=== PATIENT | female | born 1950 | race Caucasian/White ===

== ENCOUNTER 2020-08-01 13:12 | Emergency (ER) | payer MEDICARE, OTHER ==
--- NOTE | 2020-08-01 13:39 | ED Physician Documentation ---
PD HPI CHEST PAIN - Stated complaint Stated Complaint: CHEST PX - Chief complaint Chief Complaint: Cardiac - History obtained from History obtained from: Patient - History of Present Illness Timing - onset: Today - Additional information Additional information: This is a very healthy 70-year-old woman without history of heart disease who was in her usual state of health at 11 AM driving and coughed and then got a sudden sharp central nonradiating chest pain which defervesced and became dull and is now gone. She went to an urgent care but was referred here for further evaluation and treatment. There is no associated radiation to the back, pedal edema, calf pain, shortness of breath. Review of Systems Ten Systems: 10 systems reviewed and negative Nose: denies: Rhinorrhea / runny nose, Congestion Throat: denies: Sore throat Cardiac: denies: Pedal edema, Calf pain Respiratory: denies: Dyspnea, Cough, Hemoptysis, Wheezing PD PAST MEDICAL HISTORY - Past Medical History Cardiovascular: None Respiratory: Other Endocrine/Autoimmune: None GI: None : None HEENT: None Psych: None Musculoskeletal: None Derm: None - Past Surgical History Ortho: Carpal Tunnel surgery - Present Medications Home Medications: Ambulatory Orders Medication Instructions Recorded Confirmed Alendronate Sodium [Fosamax] 70 mg PO DAILY 10/13/13 08/01/20 Gabapentin [Gralise] 300 mg PO TID 08/01/20 08/01/20 Ibuprofen 400 mg PO DAILY 08/01/20 08/01/20 Mometasone Furoate [Nasonex] 1 spray .ROUTE DAILY 08/01/20 08/01/20 - Allergies Allergies/Adverse Reactions: Allergies Allergy/AdvReac Type Severity Reaction Status Date / Time sulfamethoxazole AdvReac Intermediate Nausea Verified 08/01/20 13:27 [From ] trimethoprim [From ] AdvReac Intermediate Nausea Verified 08/01/20 13:27 PD ED PE NORMAL - Vitals Vital signs reviewed: Yes - General General: Alert and oriented X 3, No acute distress - HEENT HEENT: PERRL, EOMI - Neck Neck: Supple, no meningeal sign, No bony TTP - Cardiac Cardiac: RRR, No murmur - Respiratory Respiratory: No respiratory distress, Clear bilaterally - Abdomen Abdomen: Normal bowel sounds, Soft, Non tender - Back Back: No CVA TTP, No spinal TTP - Derm Derm: Normal color, No rash - Extremities Extremities: No edema, No calf tenderness / cord - Neuro Neuro: Alert and oriented X 3, Normal speech Results - Vitals Vitals: Vital Signs - 24 hr 08/01/20 08/01/20 13:14 13:44 Temperature 36.3 C L 37.1 C Heart Rate 67 63 Respiratory 16 18 Rate Blood Pressure 157/68 H 155/101 H O2 Saturation 98 100 Oxygen O2 Source Room air - EKG (time done) 1316 Rate: Rate (enter#) (55) Rhythm: NSR [place]: Normal Intervals: Normal [place] QRS: Normal Ischemia: Normal ST segments Computer interpretation: Agree with computer - Labs Labs: Laboratory Tests 08/01/20 08/01/20 08/01/20 13:36 13:36 13:36 WBC 5.8 RBC 4.37 Hgb 13.7 Hct 42.0 MCV 96.1 MCH 31.4 H MCHC 32.6 RDW 12.4 Plt Count 238 MPV 9.9 Neut # (Auto) 3.3 Lymph # (Auto) 1.5 [place] # (Auto) 0.7 Eos # (Auto) 0.3 Baso # (Auto) 0.1 Absolute Nucleated RBC 0.00 Nucleated RBC % 0.0 Sodium 136 Potassium 3.8 Chloride 101 Carbon Dioxide 24 Anion Gap 11.0 BUN 15 Creatinine 0.8 Estimated GFR (MDRD) 71 L Glucose 90 Calcium 9.5 Total Bilirubin 1.0 AST 23 ALT 19 Alkaline Phosphatase 66 Troponin I High Sens 4.1 Total Protein 7.5 Albumin 4.8 Globulin 2.7 Albumin/Globulin Ratio 1.8 Lipase 32 PD MEDICAL DECISION MAKING - ED course ED course: 70-year-old woman presents with chest pain that started while coughing and subsequently defervesced, no findings of ACS. Nothing to suggest dissection or PE in the history and physical. Departure - Departure Disposition: Home, Self Care Clinical Impression: Chest pain Qualifiers: Chest pain type: unspecified Qualified Code(s): R07.9 - Chest pain, unspecified Condition: Good Record reviewed to determine appropriate education?: Yes Instructions: ED Chest Pain NonCardiac Comments: Followup with your primary care doctor, next available appt. Return if worse.
--- NOTE | 2020-08-01 13:54 | XRAY Report ---
PROCEDURE: Chest 1 View X-Ray INDICATIONS: Chest pain TECHNIQUE: One view of the chest was acquired. COMPARISON: None. FINDINGS: Surgical changes and devices: None. Lungs and pleura: No pleural effusions or pneumothorax. Lungs are clear. Mediastinum: Mediastinal contours appear normal. Heart size is normal. Bones and chest wall: No suspicious bony lesions. Overlying soft tissues appear unremarkable. IMPRESSION: No acute finding. Reviewed by: Jori Mendoza MD on 08/01/2020 1:53 PM [facility] Approved by: Jori Mendoza MD on 08/01/2020 1:53 PM [facility] Station ID: [id number]
[2020-08-01 14:04] LABS: BASOPHILS # (AUTO) 0.1 10^3/uL (0.0-0.1); BASOPHILS % (AUTO) 1.2 %; EOSINOPHILS # (AUTO) 0.3 10^3/uL (0.0-0.7); EOSINOPHILS % (AUTO) 4.3 %; HGB - HEMOGLOBIN 13.7 g/dL (12.0-16.0); LYMPHOCYTES # (AUTO) 1.5 10^3/uL (1.5-3.5); LYMPHOCYTES % (AUTO) 25.3 %; MEAN CORPUSCULAR HEMOGLOBIN 31.4 pg (27.0-31.0); MEAN CORPUSCULAR HGB CONC 32.6 g/dL (32.0-36.0); MEAN CORPUSCULAR VOLUME 96.1 fL (81.0-99.0); MEAN PLATELET VOLUME 9.9 fL (7.9-10.8); MONOCYTES # (AUTO) 0.7 10^3/uL (0.0-1.0); MONOCYTES % (AUTO) 12.5 %; NEUTROPHILS # (AUTO) 3.3 10^3/uL (1.5-6.6); NEUTROPHILS % (AUTO) 56.4 %; PLT - PLATELET COUNT 238 10^3/uL (130-450); RED BLOOD COUNT 4.37 10^6/uL (4.20-5.40); RED CELL DISTRIBUTION WIDTH 12.4 % (12.0-15.0); WHITE BLOOD COUNT 5.8 x10^3/uL (4.8-10.8)
[2020-08-01 14:13] LABS: ALBUMIN 4.8 g/dL (3.2-5.5); ALBUMIN/GLOBULIN RATIO 1.8 (1.0-2.2); CALCIUM 9.5 mg/dL (8.5-10.3); CREATININE 0.8 mg/dL (0.4-1.0); TOTAL PROTEIN 7.5 g/dL (6.7-8.2)
[2020-08-01 14:33] VITALS: BP 132/76
== END 2020-08-01 14:39 | disposition home or self-care (01) ==
LOC: ED 13:12
DX: R07.9 Chest pain, unspecified (principal); R05 Cough
CPT/HCPCS: 36415; 80053; 83690; 84484; 85025; 93005; 99284

== ENCOUNTER 2020-12-13 15:52 | Emergency (ER) | payer MEDICARE, OTHER ==
--- NOTE | 2020-12-13 17:01 | XRAY Report ---
PROCEDURE: Chest 1 View X-Ray INDICATIONS: Chest pain TECHNIQUE: One view of the chest was acquired. COMPARISON: 08/01/2020 chest radiograph FINDINGS: Surgical changes and devices: None. Lungs and pleura: No pleural effusions or pneumothorax. Lungs are clear. Mediastinum: Mediastinal contours appear normal. Heart size is normal. Bones and chest wall: No suspicious bony lesions. Overlying soft tissues appear unremarkable. IMPRESSION: No acute cardiopulmonary process demonstrated radiographically. Reviewed by: Jori Mendoza MD on 12/13/2020 4:59 PM PDT Approved by: Jori Mendoza MD on 12/13/2020 4:59 PM PDT Station ID: [id number]
[2020-12-13 17:19] LABS: BASOPHILS # (AUTO) 0.1 10^3/uL (0.0-0.1); BASOPHILS % (AUTO) 1.1 %; EOSINOPHILS # (AUTO) 0.3 10^3/uL (0.0-0.7); EOSINOPHILS % (AUTO) 5.4 %; HCT - HEMATOCRIT 42.5 % (37.0-47.0); HGB - HEMOGLOBIN 14.4 g/dL (12.0-16.0); LYMPHOCYTES # (AUTO) 1.9 10^3/uL (1.5-3.5); LYMPHOCYTES % (AUTO) 31.1 %; MEAN CORPUSCULAR HEMOGLOBIN 31.4 pg (27.0-31.0); MEAN CORPUSCULAR HGB CONC 33.9 g/dL (32.0-36.0); MEAN CORPUSCULAR VOLUME 92.8 fL (81.0-99.0); MEAN PLATELET VOLUME 9.7 fL (7.9-10.8); MONOCYTES # (AUTO) 0.7 10^3/uL (0.0-1.0); MONOCYTES % (AUTO) 10.7 %; NEUTROPHILS # (AUTO) 3.2 10^3/uL (1.5-6.6); NEUTROPHILS % (AUTO) 51.4 %; PLT - PLATELET COUNT 229 10^3/uL (130-450); RED BLOOD COUNT 4.58 10^6/uL (4.20-5.40); WHITE BLOOD COUNT 6.2 x10^3/uL (4.8-10.8)
[2020-12-13 17:34] LABS: ALBUMIN 4.8 g/dL (3.2-5.5); ALBUMIN/GLOBULIN RATIO 1.6 (1.0-2.2); BILIRUBIN,TOTAL 0.6 mg/dL (0.2-1.0); CALCIUM 9.8 mg/dL (8.5-10.3); CREATININE 0.9 mg/dL (0.4-1.0); POTASSIUM 4.1 mmol/L (3.5-5.0); TOTAL PROTEIN 7.8 g/dL (6.7-8.2)
--- NOTE | 2020-12-13 17:54 | ED Physician Documentation ---
History of Present Illness - Stated complaint Stated Complaint: DIZZINESS/HIGH BLOOD PRESSURE - Chief complaint Chief Complaint: General - History obtained from History obtained from: Patient - History of Present Illness Timing: Today Pain level max: 4 Pain level now: 3 - Additonal information Additional information: 70-year-old female presents to the emergency department with a headache behind her right eye for the past 24 hours. She states that she has felt "off balance" as well. She states similar to her prior episodes of vertigo, but milder. She states that she went to the urgent care today to be evaluated and they sent her here because her blood pressure was elevated. No chest pain. No shortness of breath. No focal numbness or weakness. Nothing makes this better or worse. Patient does state that she has had a very mild headache behind her right eye for the past 2 days. Gradual in onset. Took Tylenol, states the headache went away for a little while but came back. No medication changes. No fevers. No chills. Review of Systems Ten Systems: 10 systems reviewed and negative Constitutional: denies: Fever, Chills Nose: denies: Rhinorrhea / runny nose, Congestion Throat: denies: Sore throat Respiratory: denies: Cough, Wheezing PD PAST MEDICAL HISTORY - Past Medical History Cardiovascular: None Respiratory: Other Neuro: None Endocrine/Autoimmune: None GI: None AUTO WHEEL ALIGNMENT SPECIALIST: None : None HEENT: None Psych: None Musculoskeletal: None Derm: None - Past Surgical History Past Surgical History: Yes Ortho: Carpal Tunnel surgery - Present Medications Home Medications: Ambulatory Orders Medication Instructions Recorded Confirmed Alendronate Sodium [Fosamax] 70 mg PO DAILY 10/13/13 08/01/20 Gabapentin [Gralise] 300 mg PO TID 08/01/20 08/01/20 Ibuprofen 400 mg PO DAILY 08/01/20 08/01/20 Mometasone Furoate [Nasonex] 1 spray .ROUTE DAILY 08/01/20 08/01/20 - Allergies Allergies/Adverse Reactions: Allergies Allergy/AdvReac Type Severity Reaction Status Date / Time sulfamethoxazole AdvReac Intermediate Nausea Verified 12/13/20 16:10 [From ] trimethoprim [From ] AdvReac Intermediate Nausea Verified 12/13/20 16:10 - Social History Does the pt smoke?: No Smoking Status: Never smoker Does the pt drink ETOH?: Yes Does the pt have substance abuse?: No - Immunizations Immunizations are current?: Yes PD ED PE NORMAL - Vitals Vital signs reviewed: Yes - General General: Alert and oriented X 3, No acute distress - HEENT HEENT: Atraumatic, PERRL, EOMI, Ears normal, Moist mucous membranes, Pharynx benign - Neck Neck: Supple, no meningeal sign, No bony TTP - Cardiac Cardiac: RRR, No murmur, Strong equal pulses - Respiratory Respiratory: No respiratory distress, Clear bilaterally - Abdomen Abdomen: Soft, Non tender, Non distended - Back Back: No spinal TTP - Derm Derm: Warm and dry - Extremities Extremities: No edema, No calf tenderness / cord - Neuro Neuro: Alert and oriented X 3, director geophysical laboratory 2-12 intact, No motor deficit, No sensory deficit, Normal speech, Other (normal cerebellar testing, normal gait. no nystagmus) Eye Opening: Spontaneous Motor: Obeys Commands Verbal: Oriented GCS Score: 15 - Psych Psych: Normal mood, Normal affect Results - Vitals Vitals: Vital Signs - 24 hr 12/13/20 12/13/20 12/13/20 16:10 17:06 19:37 Temperature 36.3 C L Heart Rate 60 51 L 80 Respiratory 18 16 20 Rate Blood Pressure 187/75 H 146/73 H 117/82 H O2 Saturation 94 98 100 Oxygen O2 Source Room air - EKG (time done) 1709 Rate: Rate (enter#) (49) Rhythm: Sinus bradycardia [place]: Normal Intervals: Normal [place] QRS: Normal Ischemia: Normal ST segments - Labs Labs: Laboratory Tests 12/13/20 12/13/20 12/13/20 17:15 17:15 17:15 WBC 6.2 RBC 4.58 Hgb 14.4 Hct 42.5 MCV 92.8 MCH 31.4 H MCHC 33.9 RDW 13.0 Plt Count 229 MPV 9.7 Neut # (Auto) 3.2 Lymph # (Auto) 1.9 [place] # (Auto) 0.7 Eos # (Auto) 0.3 Baso # (Auto) 0.1 Absolute Nucleated RBC 0.00 Nucleated RBC % 0.0 Sodium 138 Potassium 4.1 Chloride 103 Carbon Dioxide 24 Anion Gap 11.0 BUN 25 H Creatinine 0.9 Estimated GFR (MDRD) 62 L Glucose 96 Calcium 9.8 Total Bilirubin 0.6 AST 22 ALT 20 Alkaline Phosphatase 64 Troponin I High Sens 3.1 Total Protein 7.8 Albumin 4.8 Globulin 3.0 Albumin/Globulin Ratio 1.6 Lipase 34 - Rads (name of study) chest xray Radiology: Prelim report reviewed, EMP read contemporaneously, See rad report (No acute cardiopulmonary process demonstrated radiographically. ) head CT Radiology: Prelim report reviewed, EMP read contemporaneously, See rad report (No acute intracranial abnormality demonstrated. ) PD MEDICAL DECISION MAKING - ED course Complexity details: reviewed results, re-evaluated patient, considered differential, d/w patient ED course: 70-year-old female presents to the emergency department with a slight right- sided headache, feeling off balance and hypertension earlier today. No acute findings on laboratory testing, EKG, telemetry, head CT, chest x-ray. Blood pressure decreased on its own. Patient is currently asymptomatic in the emergency department. We will have her follow-up with her doctor for further care. Patient counseled regarding signs and symptoms for which I believe and urgent re-evaluation would be necessary. Patient with good understanding of and agreement to plan and is comfortable going home at this time This document was made in part using voice recognition software. While efforts are made to proofread this document, sound alike and grammatical errors may occur. Departure - Departure Disposition: 01 Home, Self Care Clinical Impression: Dizziness Headache Qualifiers: Headache type: unspecified Headache chronicity pattern: acute headache Intractability: not intractable Qualified Code(s): R51.9 - Headache, unspecified Condition: Good Instructions: ED Dizziness UKO Follow-Up: Joseph Butcher DO [Primary Care Provider] - Within 1 week Comments: Your testing does not show any acute abnormalities today. Please follow-up with your doctor for further care. Return if you worsen. Discharge Date/Time: 12/13/20 19:51
--- NOTE | 2020-12-13 18:38 | CT Report ---
PROCEDURE: HEAD WO INDICATIONS: Headache, off balance TECHNIQUE: Noncontrast 4.5 mm thick angled axial sections acquired from the foramen magnum to the vertex. For r adiation dose reduction, the following was used: automated exposure control, adjustment of mA and/or kV according to patient size. COMPARISON: None. FINDINGS: Image quality: Excellent. CSF spaces: Basal cisterns are patent. No extra-axial fluid collections. Ventricles are normal in size and shape. Brain: No midline shift. No intracranial masses or hemorrhage. Estevez-white matter interface is norm al. Skull and face: Calvarium and visualized facial bones are intact, without suspicious lesions. Sinuses: Visualized sinuses and mastoids are clear. IMPRESSION: No acute intracranial abnormality demonstrated. Reviewed by: Jori Mendoza MD on 12/13/2020 6:37 PM PDT Approved by: Jori Mendoza MD on 12/13/2020 6:37 PM PDT Station ID: [id number]
[2020-12-13 19:38] VITALS: BP 117/82
== END 2020-12-13 19:51 | disposition home or self-care (01) ==
LOC: ED 15:52
DX: R42 Dizziness and giddiness (principal); R51.9 Headache, unspecified; I10 Essential (primary) hypertension; R00.1 Bradycardia, unspecified
CPT/HCPCS: 36415; 80053; 83690; 84484; 85025; 93005; 99284

== ENCOUNTER 2021-03-21 11:15 | Emergency (ER) | payer MEDICARE, OTHER ==
--- NOTE | 2021-03-21 16:06 | ED Physician Documentation ---
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 When she was getting off the bus she felt a little bit dizzy but it did not feel like her typical vertigo. She was dizzy up until the point that she was went to the bathroom here at the emergency department about 40 minutes ago. She thinks it lasted for several hours. She never had a headache today or any visual changes had no ringing in her ears but over the past month she has been having several headaches that have been unusual. She has not had any in days. She denies any numbness or tingling and did not pass out. She has environmental allergies that she takes an allergy pill for at night but has not had any recent congestion or cough. She takes gabapentin 3 times a day for postherpetic neuralgia in her right arm and because she does not want to take pills when she is driving the bus she has not taken them in the mornings for the past few days since school started. She lives with her . No history of stroke. Her father's family history is unknown but there is no history of heart disease and or stroke on her mother side. Review of Systems Constitutional: denies: Fever, Chills Eyes: denies: Loss of vision, Decreased vision Ears: denies: Tinnitus/ringing Nose: denies: Congestion Throat: denies: Sore throat Cardiac: denies: Chest pain / pressure, Palpitations Respiratory: denies: Dyspnea, Cough GI: reports: Nausea. 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 denies: Generalized weakness, Focal weakness, Numbness, Near syncope, Syncope Endocrine: reports: Other (Not diabetic) PD PAST MEDICAL HISTORY - Past Medical History Cardiovascular: None Respiratory: Other Neuro: None Endocrine/Autoimmune: None GI: None PREVENTIVE MAINTENANCE COORDINATOR: None : None HEENT: None Psych: None Musculoskeletal: None Derm: None - Past Surgical History Past Surgical History: Yes Ortho: Carpal Tunnel surgery - Present Medications Home Medications: Ambulatory Orders Medication Instructions Recorded Confirmed Alendronate Sodium [Fosamax] 70 mg PO DAILY 10/13/13 08/01/20 Gabapentin [Gralise] 300 mg PO TID 08/01/20 08/01/20 Ibuprofen 400 mg PO DAILY 08/01/20 08/01/20 Mometasone Furoate [Nasonex] 1 spray .ROUTE DAILY 08/01/20 08/01/20 - Allergies Allergies/Adverse Reactions: Allergies Allergy/AdvReac Type Severity Reaction Status Date / Time sulfamethoxazole AdvReac Intermediate Nausea Verified 03/21/21 11:56 [From ] trimethoprim [From ] AdvReac Intermediate Nausea Verified 03/21/21 11:56 - Social History Does the pt smoke?: No Smoking Status: Never smoker Does the pt drink ETOH?: Yes Does the pt have substance abuse?: No - Immunizations Immunizations are current?: Yes - POLST Patient has POLST: No PD ED PE NORMAL - Vitals Vital signs reviewed: Yes - General General: Alert and oriented X 3, No acute distress, Well developed/nourished - HEENT HEENT: Atraumatic, PERRL, EOMI, Moist mucous membranes, Pharynx benign - Neck Neck: Supple, no meningeal sign, No JVD, No bruit - Cardiac Cardiac: RRR, No murmur - Respiratory Respiratory: No respiratory distress, Clear bilaterally - Abdomen Abdomen: Normal bowel sounds, Soft, Non tender - Derm Derm: Normal color, Warm and dry, No rash - Extremities Extremities: No deformity, No edema - Neuro Neuro: Alert and oriented X 3, No motor deficit, No sensory deficit, Normal speech, Other (R face with barely perceptible droop to forehead and R side of mouth) - Psych Psych: Normal mood Results - Vitals Vitals: Vital Signs - 24 hr 03/21/21 03/21/21 03/21/21 11:52 15:39 19:09 Temperature 36.7 C Heart Rate 76 91 54 L Respiratory 18 16 17 Rate Blood Pressure 159/102 H 166/107 H 132/58 H O2 Saturation 97 97 100 Oxygen O2 Source Room air - EKG (time done) 1657 Rate: Rate (enter#) (55) Rhythm: NSR Ischemia: Non specific changes - Labs Labs: Laboratory Tests 03/21/21 03/21/21 03/21/21 17:05 17:05 18:47 WBC 5.5 RBC 4.41 Hgb 14.0 Hct 42.2 MCV 95.7 MCH 31.7 H MCHC 33.2 RDW 13.8 Plt Count 252 MPV 9.8 Neut # (Auto) 3.0 Lymph # (Auto) 1.6 [place] # (Auto) 0.6 Eos # (Auto) 0.2 Baso # (Auto) 0.1 Absolute Nucleated RBC 0.00 Nucleated RBC % 0.0 Sodium 140 Potassium 3.7 Chloride 107 Carbon Dioxide 25 Anion Gap 8.0 BUN 13 Creatinine 0.8 Estimated GFR (MDRD) 71 L Glucose 93 Calcium 9.7 Urine Color Cancelled Urine Clarity Cancelled Urine pH Cancelled Ur Specific [place] Cancelled Urine Protein Cancelled Urine Glucose (UA) Cancelled Urine Ketones Cancelled Urine Occult Blood Cancelled Urine Nitrite Cancelled Urine Bilirubin Cancelled Urine Urobilinogen Cancelled Ur Leukocyte Esterase Cancelled Ur Microscopic Review Cancelled Urine Culture Comments Cancelled PD MEDICAL DECISION MAKING - ED course ED course: 1814: Patient with an episode of amnesia and mild dizziness that lasted several hours today. She now feels back to normal. Labs are unremarkable. Urinalysis is still pending. She is in a sinus rhythm without sign of A. fib. CT angio of the head and neck are pending. 1851: CTA of the head and neck are normal. Patient will be discharged with instructions to follow-up with her primary care provider. This was insufficient to be analyzed. She is not really symptomatic so we made the decision not to wait for a urine specimen as she is asymptomatic. She is not to be driving until follow-up. Departure - Departure Disposition: 01 Home, Self Care Clinical Impression: Transient global amnesia Condition: Stable Instructions: ED Altered Loc Follow-Up: Joseph Butcher DO [Primary Care Provider] - Comments: No driving until cleared by your primary care provider. Return to the emergency department if you have any further concerning symptoms. Forms: Activity restrictions Discharge Date/Time: 03/21/21 19:10
[2021-03-21 17:20] LABS: BASOPHILS # (AUTO) 0.1 10^3/uL (0.0-0.1); BASOPHILS % (AUTO) 1.3 %; EOSINOPHILS # (AUTO) 0.2 10^3/uL (0.0-0.7); EOSINOPHILS % (AUTO) 3.8 %; HCT - HEMATOCRIT 42.2 % (37.0-47.0); LYMPHOCYTES # (AUTO) 1.6 10^3/uL (1.5-3.5); LYMPHOCYTES % (AUTO) 29.4 %; MEAN CORPUSCULAR HEMOGLOBIN 31.7 pg (27.0-31.0); MEAN CORPUSCULAR HGB CONC 33.2 g/dL (32.0-36.0); MEAN CORPUSCULAR VOLUME 95.7 fL (81.0-99.0); MEAN PLATELET VOLUME 9.8 fL (7.9-10.8); MONOCYTES # (AUTO) 0.6 10^3/uL (0.0-1.0); MONOCYTES % (AUTO) 11.2 %; NEUTROPHILS % (AUTO) 54.1 %; PLT - PLATELET COUNT 252 10^3/uL (130-450); RED BLOOD COUNT 4.41 10^6/uL (4.20-5.40); RED CELL DISTRIBUTION WIDTH 13.8 % (12.0-15.0); WHITE BLOOD COUNT 5.5 x10^3/uL (4.8-10.8)
[2021-03-21 17:34] LABS: CALCIUM 9.7 mg/dL (8.5-10.3); CREATININE 0.8 mg/dL (0.4-1.0); POTASSIUM 3.7 mmol/L (3.5-5.0)
[2021-03-21] MEDS ORDERED: IOPAMIDOL-300 100 ML VIAL ONE (17:46)
--- NOTE | 2021-03-21 18:36 | CT Report ---
PROCEDURE: ANGIO HEAD W/WO INDICATIONS: L sided facial droop CONTRAST: IV CONTRAST: Isovue 300 ml: 80 PO CONTRAST: *NO PO CONTRAST TECHNIQUE: Precontrast 4.5 mm thick angled axial sections acquired from the foramen magnum to the vertex. Afte r the administration of intravenous contrast, 1 mm thick sections acquired through the [place] of [place] is. Postcontrast 4.5 mm thick sections then re-acquired from the foramen magnum to the vertex. 3-di mensional ocsoyns-rqagrkcds-nctipvntsg (MIP) and/or volume rendering reformats were acquired of the c entral intracranial vasculature. For radiation dose reduction, the following was used: automated ex posure control, adjustment of mA and/or kV according to patient size. COMPARISON: CT of brain dated 12/13/2020. FINDINGS: Image quality: Excellent. Anterior circulation: Intracranial internal carotid arteries are normal in size and flow. The flow within the paired anterior cerebral arteries is normal and symmetric. The flow within the middle cer ebral arteries is normal and symmetric. The anterior communicating artery is seen. No aneurysms are seen. Posterior circulation: Visualized portions of the vertebral arteries demonstrate normal caliber, and join to form a normal appearing basilar artery. Flow within the posterior cerebral arteries is norm al and symmetric. No aneurysms are seen. CSF spaces: Ventricles are normal in size and shape. Basal cisterns are patent. No extra-axial flu id collections. Brain: No midline shift. No intracranial bleeds or masses. There is mild periventricular and deep w jose j matter chronic small vessel ischemic changes. Estevez-white matter interface appears intact. No ar ea of abnormal contrast enhancement is seen. Skull and face: Calvarium and facial bones appear intact, without suspicious lesions. Sinuses: Visualized sinuses and mastoids are clear. IMPRESSION: 1. No CT evidence of acute intracranial pathology. No area of abnormal contrast enhancement. 2. No hemodynamically significant stenosis or aneurysm is seen in intracranial circulation. Reviewed by: Chi El MD on 03/21/2021 6:35 PM PDT Approved by: Chi El MD on 03/21/2021 6:35 PM PDT Station ID: [id number]
--- NOTE | 2021-03-21 18:37 | CT Report ---
PROCEDURE: ANGIO NECK W INDICATIONS: L sided facial droop, L neck pain CONTRAST: IV CONTRAST: Isovue 300 ml: 80 PO CONTRAST: *NO PO CONTRAST TECHNIQUE: After the administration of intravenous contrast, 1.5 mm axial sections acquired from the aortic arch to the [place] of [place]. Coronal 3-D maximum intensity projection (MIP) and/or volume rendering ref ormats were then performed. For radiation dose reduction, the following was used: automated exposur e control, adjustment of mA and/or kV according to patient size. COMPARISON: None. FINDINGS: Image quality: Excellent. Carotid system: The great vessels demonstrate a conventional anatomy as they arise from the aortic a rch. The origins of the common carotid arteries appear patent. The common carotid arteries demonstr ate normal calibers and courses. The bifurcation regions appear normal bilaterally. The internal ca rotid arteries demonstrate normal caliber and course. Posterior circulation: The origins of the vertebral arteries appear patent. The more superior porti ons of the vertebral arteries demonstrate normal course and caliber. They join to form a normal appe aring basilar artery. Soft tissues: Visualized neck soft tissues demonstrate no suspicious abnormalities. The thyroid is normal in size and there are no incidental findings. Bones: No suspicious bony lesions. Visualized cervical spine appears normally aligned. IMPRESSION: No hemodynamically significant stenosis is seen in bilateral neck arteries. The estimate of stenosis included in the report of the imaging study was calculated using the NASCET method CLINICAL RECOMMENDATION STATEMENTS: In patients <35 years with an ITN detected on CT, MRI, or extrathyroidal ultrasound, the Committee re commends further evaluation with dedicated thyroid ultrasound if the nodule is ?1 cm and has no suspi cious imaging features, and if the patient has normal life expectancy. In patients ?35 years with an ITN detected on CT, MRI, or extrathyroidal ultrasound, the Committee re commends further evaluation with dedicated thyroid ultrasound if the nodule is ?1.5 cm and has no malu picious imaging features, and if the patient has normal life expectancy. (ACR, 2014) Reviewed by: Chi El MD on 03/21/2021 6:36 PM PDT Approved by: Chi El MD on 03/21/2021 6:36 PM PDT Station ID: [id number]
[2021-03-21 19:10] VITALS: BP 132/58
[2021-03-21] MEDS ORDERED: IOPAMIDOL-300 100 ML VIAL IVP ONE (21:30)
== END 2021-03-21 19:10 | disposition home or self-care (01) ==
LOC: ED 11:15
DX: G45.4 Transient global amnesia (principal)
CPT/HCPCS: 36415; 70496; 70498; 80048; 85025; 93005; 99284; Q9967; 81001; 81003; 87086

== ENCOUNTER 2021-04-10 09:36 | Outpatient (CLI) | payer MEDICARE, OTHER | END 2021-04-10 09:37 | disposition home or self-care (01) | LOC: DI 09:36 | PROVIDERS: ATTEND Family Medicine | DX: G45.4 Transient global amnesia (principal); I27.20 Pulmonary hypertension, unspecified | CPT/HCPCS: 93306 ==

== ENCOUNTER 2021-04-11 08:10 | Outpatient (CLI) | payer MEDICARE, OTHER ==
[2021-04-11] MEDS ORDERED: GADOBUTROL 7.5 MMOL/7.5 ML VIAL ONE (08:45)
--- NOTE | 2021-04-11 10:49 | MRI Report ---
PROCEDURE: Brain W/WO INDICATIONS: TRANSIENT GLOBAL AMNESIA CONTRAST: IV CONTRAST: Gadavist ml: 6.3 TECHNIQUE: Noncontrast axial T1 spin echo, axial T2 fast spin echo, sagittal and axial FLAIR, coronal T2 fast sp in echo, axial gradient echo, axial diffusion and ADC through the brain. After the administration of contrast, axial and coronal T1 spin echo with fat saturation through the brain. COMPARISON: None. FINDINGS: Image quality: Excellent. CSF spaces: Basal cisterns are patent. No extra-axial fluid collections. Ventricles are normal in size and shape. Brain: No midline shift. No intracranial bleeds or masses. No abnormal intracranial enhancement. There is mild cerebral volume loss for age. There is mild periventricular white matter chronic small vessel ischemic change. The brainstem appears normal. Diffusion-weighted images demonstrate no acu te ischemic insults. No chronic ischemic insults. Normal intravascular flow voids are present. Skull and face: Calvarial marrow is normal in signal. Orbits appear normal. Sinuses: Sinuses and mastoids predominantly clear. IMPRESSION: Mild global cerebral volume loss and chronic microvascular ischemic changes. No abnormal intracranial enhancement or acute intracranial pathology. Reviewed by: Jori Mendoza MD on 04/11/2021 10:47 AM PDT Approved by: Jori Mendoza MD on 04/11/2021 10:47 AM PDT Station ID: [id number]
[2021-04-11] MEDS ORDERED: GADOBUTROL 7.5 MMOL/7.5 ML VIAL IVP ONE (16:31)
== END 2021-04-11 08:11 | disposition home or self-care (01) ==
LOC: DI 08:10
PROVIDERS: ATTEND Family Medicine
DX: G45.4 Transient global amnesia (principal); R29.90 Unspecified symptoms and signs involving the nervous system
CPT/HCPCS: 70553; A9585

== ENCOUNTER 2021-07-09 08:00 | Outpatient (CLI) | payer MEDICARE, OTHER | END 2021-07-09 23:59 | LOC: LAB 08:00 | PROVIDERS: ATTEND Physician Assistant | DX: U07.1 COVID-19 (principal) ==

== ENCOUNTER 2024-03-15 10:38 | Outpatient (CLI) | payer MEDICARE, OTHER ==
[2024-03-15 18:59] LABS: BASOPHILS % (AUTO) 0.8 %; EOSINOPHILS # (AUTO) 0.2 10^3/uL (0.0-0.7); EOSINOPHILS % (AUTO) 4.5 %; HCT - HEMATOCRIT 41.1 % (37.0-47.0); HGB - HEMOGLOBIN 13.2 g/dL (12.0-16.0); LYMPHOCYTES # (AUTO) 1.2 10^3/uL (1.5-3.5); LYMPHOCYTES % (AUTO) 22.6 %; MEAN CORPUSCULAR HEMOGLOBIN 31.4 pg (27.0-31.0); MEAN CORPUSCULAR HGB CONC 32.1 g/dL (32.0-36.0); MEAN CORPUSCULAR VOLUME 97.9 fL (81.0-99.0); MEAN PLATELET VOLUME 10.6 fL (7.9-10.8); MONOCYTES # (AUTO) 0.5 10^3/uL (0.0-1.0); MONOCYTES % (AUTO) 10.5 %; NEUTROPHILS # (AUTO) 3.1 10^3/uL (1.5-6.6); NEUTROPHILS % (AUTO) 61.2 %; PLT - PLATELET COUNT 248 10^3/uL (130-450); RED CELL DISTRIBUTION WIDTH 13.6 % (12.0-15.0); WHITE BLOOD COUNT 5.1 x10^3/uL (4.8-10.8)
[2024-03-15 19:10] LABS: ALBUMIN 4.3 g/dL (3.2-5.5); ALKALINE PHOSPHATASE 58 IU/L (42-121); ALT ALANINE AMINOTRANSFERASE 16 IU/L (10-60); AST ASPARTATE AMINOTRANSFERASE 21 IU/L (10-42); BILIRUBIN,TOTAL 0.8 mg/dL (0.2-1.0); BUN - BLOOD UREA NITROGEN 16 mg/dL (6-20); CALCIUM 9.4 mg/dL (8.5-10.3); CARBON DIOXIDE - CO2 26 mmol/L (21-32); CHLORIDE 106 mmol/L (101-111); CHOL/HDL RATIO 5.1 (<4.4); CHOLESTEROL 209 mg/dL; CREATININE 0.9 mg/dL (0.6-1.3); GFR - MDRD 61 (>89); GLUCOSE 90 mg/dL (74-104); HDL CHOLESTEROL 41 mg/dL; LDL CHOLESTEROL,CALCULATED 130 mg/dL; LDL/HDL RATIO 3.2 (<4.4); POTASSIUM 4.1 mmol/L (3.5-4.5); SODIUM 139 mmol/L (135-145); TOTAL PROTEIN 6.5 g/dL (6.4-8.9); TRIGLYCERIDES 191 mg/dL; VLDL CHOLESTEROL 38 mg/dL
[2024-03-15 19:26] LABS: THYROID STIMULATING HORMONE 1.39 uIU/mL (0.34-5.60)
[2024-03-15 19:50] LABS: ESTIMATED AVERAGE GLUCOSE 108 mg/dL (70-100); HEMOGLOBIN A1c% 5.4 % (4.27-6.07)
== END 2024-03-15 10:39 | disposition home or self-care (01) ==
LOC: LAB.N 10:38
DX: Z00.00 Encounter for general adult medical examination without abnormal findings (principal)
CPT/HCPCS: 36415; 80053; 80061; 83036; 83721; 84443; 85025